=== PATIENT | female | born 1955 | race Caucasian/White ===

== ENCOUNTER 2021-09-18 09:32 | Outpatient (CLI) | payer MEDICARE | END 2021-09-18 09:33 | disposition home or self-care (01) | LOC: BICMAMMO 09:32 | PROVIDERS: ATTEND Family Medicine | DX: Z12.31 Encounter for screening mammogram for malignant neoplasm of breast (principal) | CPT/HCPCS: 77063; 77067 ==

== ENCOUNTER 2022-10-31 13:45 | Outpatient (CLI) | payer MEDICARE | END 2022-10-31 13:46 | disposition home or self-care (01) | LOC: BICCT 13:45 | PROVIDERS: ATTEND Family Medicine | DX: Z12.2 Encounter for screening for malignant neoplasm of respiratory organs (principal); F17.210 Nicotine dependence, cigarettes, uncomplicated; R91.1 Solitary pulmonary nodule; E04.1 Nontoxic single thyroid nodule; I70.90 Unspecified atherosclerosis | CPT/HCPCS: 71271 ==

== ENCOUNTER 2022-12-11 12:07 | Outpatient (CLI) | payer MEDICARE | END 2022-12-11 12:08 | disposition home or self-care (01) | LOC: BICULT 12:07 | PROVIDERS: ATTEND Family Medicine | DX: E04.2 Nontoxic multinodular goiter (principal) | CPT/HCPCS: 76536 ==

== ENCOUNTER 2023-01-16 13:14 | Outpatient (CLI) | payer MEDICARE | END 2023-01-16 13:15 | disposition home or self-care (01) | LOC: BICMAMMO 13:14 | PROVIDERS: ATTEND Family Medicine | DX: Z12.31 Encounter for screening mammogram for malignant neoplasm of breast (principal); Z13.820 Encounter for screening for osteoporosis; M85.851 Other specified disorders of bone density and structure, right thigh; M85.852 Other specified disorders of bone density and structure, left thigh; Z78.0 Asymptomatic menopausal state; Z80.3 Family history of malignant neoplasm of breast; Z91.89 Other specified personal risk factors, not elsewhere classified | CPT/HCPCS: 77063; 77067; 77080 ==

== ENCOUNTER 2023-06-25 11:37 | Emergency (ER) | payer MEDICARE ==
[2023-06-25] MEDS ORDERED: Ipratropium/Albuterol 3 ML NEB ONE (12:14)
[2023-06-25 12:19] LABS: #Basophils 0.1 thou/uL (0.0-0.2); #Eosinphils 0.1 thou/uL (0.0-0.7); #Monocytes 0.7 thou/uL (0.11-0.59); #Neutrophils 7.3 thou/uL (1.40-6.50); %Basophils 0.5 % (0.0-1.0); %Eosinophils 0.6 % (0.0-10.0); %Monocytes 6.9 % (0.0-10.0); %Neutrophils 74.6 % (42.0-75.0); Hematocrit 42.6 % (36.0-47.0); Hemoglobin 14.5 g/dL (12.0-16.0); Mean Corpuscular Hemoglobin 33.2 pg (27.0-31.0); Mean Corpuscular Volume 97.5 fl (78.0-98.0); Mean Platelet Volume 8.7 fL (7.4-10.4); Platelet Count 250 10x3/uL (130-400); RBC Distribution Width 13.1 % (11.5-14.5); Red Blood Cell (RBC) Count 4.37 mill/uL (4.20-5.40); White Blood Cell (WBC) Count 9.7 10x3/uL (4.8-10.8)
[2023-06-25 12:42] LABS: ALT (SGPT) 25 U/L (8-55); AST (SGOT) 28 U/L (5-34); Albumin 4.5 g/dL (3.4-4.8); Alkaline Phosphatase 60 U/L (40-110); Anion Gap 15 mmol/L (10-20); BUN (Urea Nitrogen) 11 mg/dL (9.8-20.1); Bilirubin, Total 0.6 mg/dL (0.2-1.2); Calc. Creatinine Clearance 0 mL/min (70-130); Carbon Dioxide 27 mmol/L (23-31); Chloride 95 mmol/L (98-107); Estimated GFR 73; Globulin 2.9 g/dL (2.4-3.5); Glucose 111 mg/dL (80-115); Potassium 4.9 mmol/L (3.5-5.1); Protein, Total 7.4 g/dL (5.8-8.1); Sodium 132 mmol/L (136-145)
[2023-06-25 13:10] LABS: SARS-CoV-2 NAA Rapid Test Not Detected (NotDetected)
[2023-06-25] MEDS ORDERED: Dexamethasone 4 MG TAB ONE (13:32)
== END 2023-06-25 13:55 | disposition home or self-care (01) ==
LOC: ERS 11:37
DX: J20.9 Acute bronchitis, unspecified (principal); I10 Essential (primary) hypertension; E78.5 Hyperlipidemia, unspecified; F17.210 Nicotine dependence, cigarettes, uncomplicated; Z20.822 Contact with and (suspected) exposure to COVID-19; Z79.82 Long term (current) use of aspirin; Z79.899 Other long term (current) drug therapy
CPT/HCPCS: 0240U; 71045; 80053; 85025; 94640; 36415; J7620; J8540

== ENCOUNTER 2023-07-09 13:35 | Inpatient (IN) | payer MEDICARE ==
[2023-07-09] MEDS ORDERED: Morphine 4 MG/ML VIAL ONE (14:39)
[2023-07-09] MEDS ORDERED: Ondansetron PF 4 MG/2 ML Vial ONE (14:39)
[2023-07-09 14:52] LABS: #Basophils 0.1 thou/uL (0.0-0.2); #Eosinphils 0.1 thou/uL (0.0-0.7); #Neutrophils 13.6 thou/uL (1.40-6.50); %Basophils 0.3 % (0.0-1.0); %Eosinophils 0.6 % (0.0-10.0); %Lymphocytes 8.6 % (21.0-51.0); %Monocytes 5.9 % (0.0-10.0); %Neutrophils 84.2 % (42.0-75.0); Hematocrit 41.6 % (36.0-47.0); Hemoglobin 14.3 g/dL (12.0-16.0); Mean Corpuscular HGB CONC 34.4 g/dL (32.0-36.0); Mean Corpuscular Hemoglobin 32.8 pg (27.0-31.0); Mean Corpuscular Volume 95.4 fl (78.0-98.0); Mean Platelet Volume 9.1 fL (7.4-10.4); Platelet Count 176 10x3/uL (130-400); RBC Distribution Width 12.5 % (11.5-14.5); Red Blood Cell (RBC) Count 4.36 mill/uL (4.20-5.40); White Blood Cell (WBC) Count 16.1 10x3/uL (4.8-10.8)
[2023-07-09 15:14] LABS: INR-International Normal Ratio 0.9; PTT 24.8 sec (22.9-36.1)
[2023-07-09] MEDS ORDERED: CEFAZOLIN 2 GM in Sodium Chloride 0.9% 100 ML IVPB SCH (16:00)
[2023-07-09 16:06] LABS: Troponin I Less than 0.010 ng/mL (< 0.028)
[2023-07-09 16:08] LABS: ALT (SGPT) 38 U/L (8-55); AST (SGOT) 37 U/L (5-34); Albumin 4.1 g/dL (3.4-4.8); Alkaline Phosphatase 56 U/L (40-110); Anion Gap 13 mmol/L (10-20); BUN (Urea Nitrogen) 16 mg/dL (9.8-20.1); Bilirubin, Total 0.5 mg/dL (0.2-1.2); Calc. Creatinine Clearance 0 mL/min (70-130); Calcium 9.5 mg/dL (7.8-10.44); Carbon Dioxide 26 mmol/L (23-31); Chloride 103 mmol/L (98-107); Estimated GFR 63; Globulin 2.8 g/dL (2.4-3.5); Glucose 92 mg/dL (80-115); Lipase 11 U/L (8-78); Magnesium 1.9 mg/dL (1.6-2.6); Potassium 3.8 mmol/L (3.5-5.1); Protein, Total 6.9 g/dL (5.8-8.1); Sodium 138 mmol/L (136-145)
[2023-07-09] MEDS ORDERED: Acetaminophen 325 MG TAB PO PRN (17:30)
[2023-07-09] MEDS ORDERED: Ondansetron PF 4 MG/2 ML Vial IVP PRN ×2 (17:30→17:35)
[2023-07-09] MEDS ORDERED: Ondansetron ODT 4 MG TAB SL PRN (17:30)
[2023-07-09] MEDS ORDERED: Ipratropium/Albuterol 3 ML NEB NEB PRN (17:35)
[2023-07-09] MEDS ORDERED: Dextrose 50% Abboject 50 ML SYRINGE SLOW IVP PRN (17:35)
[2023-07-09] MEDS ORDERED: Morphine 2 MG/ML VIAL SLOW IVP PRN (17:35)
[2023-07-09] MEDS ORDERED: Glucagon 1 MG/ML KIT IM PRN (17:35)
[2023-07-09] MEDS ORDERED: Ondansetron ODT 4 MG TAB PO PRN (17:35)
[2023-07-09] MEDS ORDERED: Morphine 4 MG/ML VIAL SLOW IVP PRN (17:35)
[2023-07-09] MEDS ORDERED: Dextrose 5% in Water 1,000 ML IV PRN (17:35)
[2023-07-09] MEDS ORDERED: hydrALAZINE 20 MG/ML VIAL SLOW IVP PRN (17:35)
[2023-07-09] MEDS: Acetaminophen 500 MG TAB PO SCH ×2 (18:04→23:53)
[2023-07-09] MEDS: Ketorolac Tromethamine 30 MG/ML VIAL IVP SCH ×2 (18:05→23:51)
[2023-07-09 19:08] VITALS: BMI 18.6
[2023-07-09] MEDS: traMADol HCl 50 MG TAB PO SCH ×2 (19:09→23:52)
[2023-07-09] MEDS ORDERED: Famotidine 20 MG TAB PO SCH (21:00)
[2023-07-09] MEDS ORDERED: Sodium Chloride 0.9% 1,000 ML IV SCH (23:55)
[2023-07-10 04:00] LABS: Bilirubin Negative (Negative); Blood, Urine Negative (Negative); Clarity Clear (Clear); Glucose, Urine (Dipstick) Normal (Negative); Ketone, Urine Negative (Negative); Leukocyte Negative Leu/uL (Negative); Nitrite Negative (Negative); Protein, Urine (Dipstick) Negative (Neg-Trace); Specific Gravity, Urine 1.017 (1.002-1.036); Urobilinogen Normal mg/dL (Less than 2); pH, Urine 6.5 (5.0-9.0)
[2023-07-10 04:09] LABS: Amphetamine Not Detected (NotDetected); Barbiturates Screen Not Detected (NotDetected); Benzodiazepine Screen Not Detected (NotDetected); Cocaine Metabolite Screen Not Detected (NotDetected); Methadone Not Detected (NotDetected); Methamphetamine Not Detected (NotDetected); Opiate Screen Detected (NotDetected); Oxycodone Screen Not Detected (NotDetected); Phencyclidine (PCP) Not Detected (NotDetected); THC/Cannabinoid Screen Not Detected (NotDetected); Tricyclic Screen Not Detected (NotDetected)
[2023-07-10 05:39] LABS: #Basophils 0.1 thou/uL (0.0-0.2); #Eosinphils 0.1 thou/uL (0.0-0.7); #Monocytes 0.6 thou/uL (0.11-0.59); #Neutrophils 5.9 thou/uL (1.40-6.50); %Basophils 0.6 % (0.0-1.0); %Eosinophils 1.8 % (0.0-10.0); %Lymphocytes 15.3 % (21.0-51.0); %Monocytes 7.9 % (0.0-10.0); %Neutrophils 74.1 % (42.0-75.0); Hematocrit 37.3 % (36.0-47.0); Hemoglobin 12.6 g/dL (12.0-16.0); Mean Corpuscular HGB CONC 33.8 g/dL (32.0-36.0); Mean Corpuscular Volume 97.6 fl (78.0-98.0); Mean Platelet Volume 9.2 fL (7.4-10.4); Platelet Count 153 10x3/uL (130-400); RBC Distribution Width 12.9 % (11.5-14.5); Red Blood Cell (RBC) Count 3.82 mill/uL (4.20-5.40)
[2023-07-10 06:16] LABS: Anion Gap 12 mmol/L (10-20); BUN (Urea Nitrogen) 30 mg/dL (9.8-20.1); Calc. Creatinine Clearance 29 mL/min (70-130); Calcium 8.4 mg/dL (7.8-10.44); Carbon Dioxide 25 mmol/L (23-31); Chloride 103 mmol/L (98-107); Estimated GFR 36; Glucose 100 mg/dL (80-115); Sodium 136 mmol/L (136-145)
[2023-07-10] MEDS: Acetaminophen 500 MG TAB PO SCH ×4 (06:16→23:03)
[2023-07-10] MEDS: traMADol HCl 50 MG TAB PO SCH ×4 (06:18→23:04)
[2023-07-10] MEDS: Ketorolac Tromethamine 30 MG/ML VIAL IVP SCH (06:34)
[2023-07-10] MEDS ORDERED: Sodium Chloride 0.9% 1,000 ML IV SCH (07:30)
[2023-07-10] MEDS: Fluticasone Propionate Nasal Spray 16 gm Bottle NASAL SCH (10:09)
[2023-07-10] MEDS ORDERED: CEFAZOLIN 2 GM VIAL ONE (11:32)
[2023-07-10] MEDS ORDERED: Sodium Chloride 0.9% 100 ML ONE (11:32)
[2023-07-10] MEDS ORDERED: Ondansetron PF 4 MG/2 ML Vial ONE (11:57)
[2023-07-10] MEDS ORDERED: PROPOFOL 200 MG/20 ML VIAL ONE (11:57)
[2023-07-10] MEDS ORDERED: Rocuronium Bromide 10 MG/ML (10ML VIAL) ONE (11:57)
[2023-07-10] MEDS ORDERED: Lidocaine 1% PF 5 ML VIAL ONE (11:57)
[2023-07-10] MEDS ORDERED: SUGAMMADEX SODIUM 200 MG/2 ML VIAL ONE ×2 (12:53→13:05)
[2023-07-10] MEDS ORDERED: fentaNYL 50 mcg/mL 1 mL Vial ONE (13:54)
[2023-07-10 16:53] LABS: Free T4 (Free Thyroxine) 0.98 ng/dL (0.70-1.48); Thyroid Stimulating Hormone 1.2607 uIU/mL (0.35-4.94)
[2023-07-10] MEDS: Atorvastatin Calcium 10 MG TAB PO SCH (19:39)
[2023-07-10] MEDS: CEFAZOLIN 2 GM in Sodium Chloride 0.9% 100 ML IVPB SCH (19:39)
[2023-07-10] MEDS ORDERED: Famotidine 20 MG TAB PO SCH (21:00)
[2023-07-11] MEDS: CEFAZOLIN 2 GM in Sodium Chloride 0.9% 100 ML IVPB SCH (03:39)
[2023-07-11] MEDS: Acetaminophen 500 MG TAB PO SCH ×4 (05:40→23:39)
[2023-07-11] MEDS: traMADol HCl 50 MG TAB PO SCH ×4 (05:41→23:38)
[2023-07-11 07:56] LABS: #Eosinphils 0.1 thou/uL (0.0-0.7); #Monocytes 0.7 thou/uL (0.11-0.59); #Neutrophils 6.6 thou/uL (1.40-6.50); %Basophils 0.2 % (0.0-1.0); %Eosinophils 1.4 % (0.0-10.0); %Lymphocytes 11.9 % (21.0-51.0); %Monocytes 7.8 % (0.0-10.0); %Neutrophils 78.5 % (42.0-75.0); Hematocrit 33.1 % (36.0-47.0); Hemoglobin 10.9 g/dL (12.0-16.0); Mean Corpuscular HGB CONC 32.9 g/dL (32.0-36.0); Mean Corpuscular Hemoglobin 32.7 pg (27.0-31.0); Mean Corpuscular Volume 99.4 fl (78.0-98.0); Mean Platelet Volume 9.3 fL (7.4-10.4); Platelet Count 135 10x3/uL (130-400); Red Blood Cell (RBC) Count 3.33 mill/uL (4.20-5.40); White Blood Cell (WBC) Count 8.5 10x3/uL (4.8-10.8)
[2023-07-11 08:13] LABS: Anion Gap 12 mmol/L (10-20); BUN (Urea Nitrogen) 16 mg/dL (9.8-20.1); Calc. Creatinine Clearance 48 mL/min (70-130); Calcium 7.7 mg/dL (7.8-10.44); Carbon Dioxide 24 mmol/L (23-31); Chloride 106 mmol/L (98-107); Estimated GFR 67; Glucose 105 mg/dL (80-115); Magnesium 1.6 mg/dL (1.6-2.6); Potassium 3.9 mmol/L (3.5-5.1); Sodium 138 mmol/L (136-145)
[2023-07-11] MEDS: Fluticasone Propionate Nasal Spray 16 gm Bottle NASAL SCH (09:08)
[2023-07-11] MEDS: traMADol HCl 50 MG TAB PO PRN (09:08)
[2023-07-11] MEDS ORDERED: Ipratropium/Albuterol 3 ML NEB NEB SCH (10:30)
[2023-07-11] MEDS: Cyclobenzaprine 10 MG TAB PO PRN (11:51)
[2023-07-11] MEDS: Aspirin 81 mg Enteric Coated Tablet PO SCH (20:01)
[2023-07-11] MEDS: Tamsulosin HCl 0.4 MG CAP PO SCH (20:01)
[2023-07-11] MEDS: Atorvastatin Calcium 10 MG TAB PO SCH (20:01)
[2023-07-11] MEDS ORDERED: traZODone HCl 50 MG TAB PO SCH (21:00)
[2023-07-12] MEDS: traMADol HCl 50 MG TAB PO SCH ×4 (05:46→23:45)
[2023-07-12] MEDS: Acetaminophen 500 MG TAB PO SCH ×4 (05:54→23:45)
[2023-07-12 06:53] LABS: #Eosinphils 0.2 thou/uL (0.0-0.7); #Monocytes 0.8 thou/uL (0.11-0.59); #Neutrophils 6.3 thou/uL (1.40-6.50); %Basophils 0.3 % (0.0-1.0); %Eosinophils 2.4 % (0.0-10.0); %Lymphocytes 15.1 % (21.0-51.0); %Monocytes 9.6 % (0.0-10.0); %Neutrophils 72.5 % (42.0-75.0); Hemoglobin 10.8 g/dL (12.0-16.0); Mean Corpuscular HGB CONC 33.8 g/dL (32.0-36.0); Mean Corpuscular Hemoglobin 33.2 pg (27.0-31.0); Mean Corpuscular Volume 98.5 fl (78.0-98.0); Mean Platelet Volume 9.5 fL (7.4-10.4); Platelet Count 131 10x3/uL (130-400); RBC Distribution Width 13.2 % (11.5-14.5); Red Blood Cell (RBC) Count 3.25 mill/uL (4.20-5.40); White Blood Cell (WBC) Count 8.7 10x3/uL (4.8-10.8)
[2023-07-12 07:16] LABS: Anion Gap 9 mmol/L (10-20); BUN (Urea Nitrogen) 10 mg/dL (9.8-20.1); Calc. Creatinine Clearance 56 mL/min (70-130); Calcium 8.2 mg/dL (7.8-10.44); Carbon Dioxide 27 mmol/L (23-31); Chloride 105 mmol/L (98-107); Estimated GFR 81; Glucose 116 mg/dL (80-115); Potassium 3.8 mmol/L (3.5-5.1); Sodium 137 mmol/L (136-145)
[2023-07-12] MEDS: Aspirin 81 mg Enteric Coated Tablet PO SCH ×2 (08:40→20:46)
[2023-07-12] MEDS: Atenolol 25 MG TAB PO SCH (08:42)
[2023-07-12] MEDS: Fluticasone Propionate Nasal Spray 16 gm Bottle NASAL SCH (08:44)
[2023-07-12] MEDS: Gabapentin 100 MG CAP PO SCH ×2 (16:57→20:47)
[2023-07-12] MEDS: traMADol HCl 50 MG TAB PO PRN (18:22)
[2023-07-12 18:51] LABS: Thyroid Peroxidase IgG Ab Less than 4.0 IU/mL (<25 Normal)
[2023-07-12] MEDS: Tamsulosin HCl 0.4 MG CAP PO SCH (20:46)
[2023-07-12] MEDS: traZODone HCl 50 MG TAB PO SCH (20:46)
[2023-07-12] MEDS: Atorvastatin Calcium 10 MG TAB PO SCH (20:48)
[2023-07-13] MEDS: Acetaminophen 500 MG TAB PO SCH ×4 (05:02→23:20)
[2023-07-13] MEDS: traMADol HCl 50 MG TAB PO SCH ×4 (05:03→23:21)
[2023-07-13] MEDS: Gabapentin 100 MG CAP PO SCH ×3 (09:16→20:24)
[2023-07-13] MEDS: Fluticasone Propionate Nasal Spray 16 gm Bottle NASAL SCH (09:17)
[2023-07-13] MEDS: Atenolol 25 MG TAB PO SCH (09:17)
[2023-07-13] MEDS: Aspirin 81 mg Enteric Coated Tablet PO SCH ×2 (09:17→20:24)
[2023-07-13] MEDS: Tamsulosin HCl 0.4 MG CAP PO SCH (20:24)
[2023-07-13] MEDS: Atorvastatin Calcium 10 MG TAB PO SCH (20:24)
[2023-07-13] MEDS: traZODone HCl 50 MG TAB PO SCH (20:24)
[2023-07-14] MEDS: Acetaminophen 500 MG TAB PO SCH ×4 (05:39→23:10)
[2023-07-14] MEDS: traMADol HCl 50 MG TAB PO SCH ×4 (05:40→23:09)
[2023-07-14] MEDS: Atenolol 25 MG TAB PO SCH (08:41)
[2023-07-14] MEDS: Gabapentin 100 MG CAP PO SCH ×3 (08:41→20:12)
[2023-07-14] MEDS: Aspirin 81 mg Enteric Coated Tablet PO SCH ×2 (08:41→20:12)
[2023-07-14] MEDS: Fluticasone Propionate Nasal Spray 16 gm Bottle NASAL SCH (08:42)
[2023-07-14] MEDS: Senokot S 8.6-50 MG TAB PO SCH (20:12)
[2023-07-14] MEDS: traZODone HCl 50 MG TAB PO SCH (20:13)
[2023-07-14] MEDS: Atorvastatin Calcium 10 MG TAB PO SCH (20:13)
[2023-07-14] MEDS: Tamsulosin HCl 0.4 MG CAP PO SCH (20:13)
[2023-07-15] MEDS: traMADol HCl 50 MG TAB PO SCH ×2 (05:28→12:14)
[2023-07-15] MEDS: Acetaminophen 500 MG TAB PO SCH (05:28)
[2023-07-15 08:25] VITALS: TEMP 96.9
[2023-07-15] MEDS: Aspirin 81 mg Enteric Coated Tablet PO SCH (08:41)
[2023-07-15] MEDS: Senokot S 8.6-50 MG TAB PO SCH (08:42)
[2023-07-15] MEDS: Gabapentin 100 MG CAP PO SCH ×2 (08:43→16:26)
[2023-07-15] MEDS: Fluticasone Propionate Nasal Spray 16 gm Bottle NASAL SCH (08:44)
[2023-07-15] MEDS: Cyclobenzaprine 10 MG TAB PO PRN (08:47)
[2023-07-15] MEDS ORDERED: Atenolol 25 MG TAB PO SCH (09:00)
[2023-07-15] MEDS ORDERED: Acetaminophen/Codeine 30-300mg Tablet PO PRN (09:39)
[2023-07-15] MEDS ORDERED: Acetaminophen 325 MG TAB PO SCH (12:00)
[2023-07-15 15:39] VITALS: BP 107/57
== END 2023-07-15 16:25 | DRG 522 ==
LOC: ERS 13:35 → SURG A 16:37
PROVIDERS: ADMIT Surgery; ATTEND Surgery
PROC: 0T9B70Z Drainage of Bladder with Drainage Device, Via Natural or Artificial Opening (ICD-10-PCS; 2023-07-09)
PROC: 0SRS0JA Replacement of Left Hip Joint, Femoral Surface with Synthetic Substitute, Uncemented, Open Approach (ICD-10-PCS; principal; 2023-07-10)
DX: S72.012A Unspecified intracapsular fracture of left femur, initial encounter for closed fracture (principal); N17.9 Acute kidney failure, unspecified; T84.84XA Pain due to internal orthopedic prosthetic devices, implants and grafts, initial encounter; D62 Acute posthemorrhagic anemia; I10 Essential (primary) hypertension; E78.5 Hyperlipidemia, unspecified; J45.909 Unspecified asthma, uncomplicated; R00.0 Tachycardia, unspecified; R33.9 Retention of urine, unspecified; W18.30XA Fall on same level, unspecified, initial encounter; Z98.890 Other specified postprocedural states; Z90.89 Acquired absence of other organs; Z90.710 Acquired absence of both cervix and uterus; Z90.49 Acquired absence of other specified parts of digestive tract; Z98.1 Arthrodesis status; Z79.82 Long term (current) use of aspirin; Z87.891 Personal history of nicotine dependence
CPT/HCPCS: 36415; 70450; 71045; 72170; 80048; 80053; 80306; 80307; 81003; 82533; 83690; 83735; 84100; 84439; 84443; 84484; 85025; 85610; 85730; 86376; 86800; 93005; 93306; 93880; 94640; 96374; 96375; C1713; C1776; J0360; J1885; J2270; J2405; J2704; J3010; J3490; J7050; J7620

== ENCOUNTER 2023-09-04 14:48 | Emergency (ER) | payer MEDICARE ==
[2023-09-04 16:48] LABS: #Basophils 0.1 thou/uL (0.0-0.2); #Eosinphils 0.1 thou/uL (0.0-0.7); #Monocytes 0.8 thou/uL (0.11-0.59); #Neutrophils 5.9 thou/uL (1.40-6.50); %Basophils 0.7 % (0.0-1.0); %Eosinophils 1.2 % (0.0-10.0); %Lymphocytes 22.5 % (21.0-51.0); %Monocytes 8.5 % (0.0-10.0); %Neutrophils 66.9 % (42.0-75.0); Hematocrit 39.7 % (36.0-47.0); Hemoglobin 13.2 g/dL (12.0-16.0); Mean Corpuscular HGB CONC 33.2 g/dL (32.0-36.0); Mean Corpuscular Hemoglobin 33.4 pg (27.0-31.0); Mean Corpuscular Volume 100.5 fl (78.0-98.0); Mean Platelet Volume 9.9 fL (7.4-10.4); Platelet Count 242 10x3/uL (130-400); RBC Distribution Width 14.6 % (11.5-14.5); Red Blood Cell (RBC) Count 3.95 mill/uL (4.20-5.40); White Blood Cell (WBC) Count 8.8 10x3/uL (4.8-10.8)
[2023-09-04 17:17] LABS: Bacteria/HPF 4+ HPF (None Seen); Bilirubin Negative (Negative); Blood, Urine Negative (Negative); CAUTI Indications for Culture Dysuria,urgency,freq; Clarity Turbid (Clear); Glucose, Urine (Dipstick) Normal (Negative); Ketone, Urine Negative (Negative); Leukocyte 500 Leu/uL (Negative); Nitrite 2+ (Negative); Protein, Urine (Dipstick) 20 mg/dL (Neg-Trace); RBC/HPF None Seen HPF (0-3); Specific Gravity, Urine 1.022 (1.002-1.036); Squamous Epithelial 0-3 HPF (0-3); Urobilinogen Normal mg/dL (Less than 2); WBC/HPF Greater than 50 HPF (0-3); Yeast-Budding 1+ HPF (None Seen); pH, Urine 5.5 (5.0-9.0)
[2023-09-04 17:18] LABS: ALT (SGPT) 28 U/L (8-55); AST (SGOT) 27 U/L (5-34); Albumin 4.5 g/dL (3.4-4.8); Alkaline Phosphatase 58 U/L (40-110); Anion Gap 13 mmol/L (10-20); BUN (Urea Nitrogen) 30 mg/dL (9.8-20.1); Bilirubin, Total 0.3 mg/dL (0.2-1.2); Calc. Creatinine Clearance 0 mL/min (70-130); Calcium 9.9 mg/dL (7.8-10.44); Carbon Dioxide 26 mmol/L (23-31); Chloride 105 mmol/L (98-107); Estimated GFR 64; Globulin 3.4 g/dL (2.4-3.5); Glucose 97 mg/dL (80-115); Potassium 3.2 mmol/L (3.5-5.1); Protein, Total 7.9 g/dL (5.8-8.1); Sodium 141 mmol/L (136-145)
[2023-09-04 17:28] LABS: Urine Culture Reflex Yes Yes
[2023-09-04] MEDS ORDERED: Lidocaine 1% MPF 2 ML VIAL ONE (17:47)
[2023-09-04] MEDS ORDERED: cefTRIAXone (ROCEPHIN) 1 GM VIAL ONE (17:47)
== END 2023-09-04 18:38 | disposition home or self-care (01) ==
LOC: ERS 14:48
DX: N39.0 Urinary tract infection, site not specified (principal); F17.210 Nicotine dependence, cigarettes, uncomplicated; J45.909 Unspecified asthma, uncomplicated; I10 Essential (primary) hypertension; Z79.82 Long term (current) use of aspirin; Z79.899 Other long term (current) drug therapy
CPT/HCPCS: 36415; 51702; 80053; 81001; 85025; 87077; 87086; 87186; 96372; 99283; J0696

== ENCOUNTER 2023-10-01 09:53 | Outpatient (CLI) | payer MEDICARE | END 2023-10-01 09:54 | disposition home or self-care (01) | LOC: BICCT 09:53 | PROVIDERS: ATTEND Student in an Organized Health Care Education/Training Program | DX: R59.9 Enlarged lymph nodes, unspecified (principal); E04.2 Nontoxic multinodular goiter; J98.4 Other disorders of lung | CPT/HCPCS: 71260; 76536 ==

== ENCOUNTER 2023-11-05 13:20 | Emergency (ER) | payer MEDICARE ==
[2023-11-05 14:07] LABS: #Eosinphils 0.1 thou/uL (0.0-0.7); #Monocytes 0.7 thou/uL (0.11-0.59); #Neutrophils 6.6 thou/uL (1.40-6.50); %Basophils 0.3 % (0.0-1.0); %Lymphocytes 20.3 % (21.0-51.0); %Monocytes 7.1 % (0.0-10.0); Hematocrit 42.2 % (36.0-47.0); Mean Corpuscular HGB CONC 33.2 g/dL (32.0-36.0); Mean Corpuscular Volume 96.3 fl (78.0-98.0); Mean Platelet Volume 10.9 fL (7.4-10.4); Platelet Count 213 10x3/uL (130-400); RBC Distribution Width 12.5 % (11.5-14.5); Red Blood Cell (RBC) Count 4.38 mill/uL (4.20-5.40); White Blood Cell (WBC) Count 9.3 10x3/uL (4.8-10.8)
[2023-11-05 14:34] LABS: ALT (SGPT) 27 U/L (8-55); AST (SGOT) 32 U/L (5-34); Albumin 4.1 g/dL (3.4-4.8); Alkaline Phosphatase 53 U/L (40-110); Anion Gap 14 mmol/L (10-20); BUN (Urea Nitrogen) 33 mg/dL (9.8-20.1); Bilirubin, Total 0.5 mg/dL (0.2-1.2); Calc. Creatinine Clearance 0 mL/min (70-130); Carbon Dioxide 28 mmol/L (23-31); Chloride 106 mmol/L (98-107); Estimated GFR 47; Globulin 4.1 g/dL (2.4-3.5); Glucose 121 mg/dL (80-115); Magnesium 1.9 mg/dL (1.6-2.6); Potassium 2.9 mmol/L (3.5-5.1); Protein, Total 8.2 g/dL (5.8-8.1); Sodium 145 mmol/L (136-145)
[2023-11-05 15:25] LABS: Bacteria/HPF None Seen HPF (None Seen); Bilirubin Negative (Negative); Blood, Urine Negative (Negative); CAUTI Indications for Culture Alt mental st,lethar; Clarity Clear (Clear); Glucose, Urine (Dipstick) Normal (Negative); Ketone, Urine Negative (Negative); Leukocyte Negative Leu/uL (Negative); Nitrite Negative (Negative); Protein, Urine (Dipstick) 10 mg/dL (Neg-Trace); RBC/HPF 0-3 HPF (0-3); Squamous Epithelial None Seen HPF (0-3); Urobilinogen Normal mg/dL (Less than 2); WBC/HPF 0-3 HPF (0-3)
[2023-11-05 15:31] LABS: Urine Culture Reflex No No
[2023-11-05] MEDS ORDERED: Potassium Chloride 20 MEQ TAB ONE (15:38)
[2023-11-05] MEDS ORDERED: Potassium Chloride 20 MEQ/100 ML PREMIX BAG ONE (15:39)
== END 2023-11-05 18:25 | disposition home or self-care (01) ==
LOC: ERS 13:20
DX: E87.6 Hypokalemia (principal); R63.0 Anorexia; I10 Essential (primary) hypertension; E78.5 Hyperlipidemia, unspecified; F17.210 Nicotine dependence, cigarettes, uncomplicated; Z79.82 Long term (current) use of aspirin; Z79.899 Other long term (current) drug therapy
CPT/HCPCS: 51798; 80053; 81001; 83735; 84443; 85025; 93005; 94760; 96365; 96366; J3480

== ENCOUNTER 2024-01-19 10:22 | Outpatient (CLI) | payer MEDICARE | END 2024-01-19 10:23 | disposition home or self-care (01) | LOC: BICMAMMO 10:22 | PROVIDERS: ATTEND Family Medicine | DX: Z12.31 Encounter for screening mammogram for malignant neoplasm of breast (principal); N64.89 Other specified disorders of breast; Z80.3 Family history of malignant neoplasm of breast; Z91.89 Other specified personal risk factors, not elsewhere classified | CPT/HCPCS: 77063; 77067 ==

== ENCOUNTER 2024-06-29 10:46 | Outpatient (CLI) | payer MEDICARE ==
[~2024-06-29 10:46] MED LIST: Iopamidol 370 76% 100 ML VIAL ONE
== END 2024-06-29 10:47 | disposition home or self-care (01) ==
LOC: BICCT 10:46
PROVIDERS: ATTEND Family Medicine
DX: Z12.2 Encounter for screening for malignant neoplasm of respiratory organs (principal); R91.8 Other nonspecific abnormal finding of lung field; Z87.891 Personal history of nicotine dependence
CPT/HCPCS: 71271; Q9967

== ENCOUNTER 2025-01-20 09:35 | Outpatient (CLI) | payer MEDICARE | END 2025-01-20 09:36 | disposition home or self-care (01) | LOC: BICMAMMO 09:35 | PROVIDERS: ATTEND Family Medicine | DX: Z12.31 Encounter for screening mammogram for malignant neoplasm of breast (principal); Z80.3 Family history of malignant neoplasm of breast; Z91.89 Other specified personal risk factors, not elsewhere classified | CPT/HCPCS: 77063; 77067 ==